=== PATIENT | female | born 1940 | race Caucasian/White ===

== ENCOUNTER 2020-09-12 18:15 | Inpatient (IN) ==
[2020-09-12 19:41] LABS: Basophils % 0.1 %; Hematocrit 45.7 % (35.3-44.9); Hemoglobin 15.1 g/dL (11.5-15.4); Immature Granulocytes % 0.5 % (0-4); Lymphocytes # 1.1 K/mcL (0.6-4.6); Mean Corpuscular Hemoglobin 32.7 pg (28.0-33.3); Mean Corpuscular Volume 98.9 fL (83.0-100.0); Monocytes % 7.6 %; Neutrophils # 11.3 K/mcL (1.6-8.9); Platelet Count 218 K/mcL (140-400); Red Blood Count 4.62 M/mcL (3.82-4.97); Red Cell Distribution Width 13.1 % (11.5-14.5); Segmented Neutrophils % 83.8 %; White Blood Count 13.5 K/mcL (4.3-11.1)
[2020-09-12] MEDS: 0.9 % Sodium Chloride 1,000 ML IVC SCH ×2 (19:50→21:14)
[2020-09-12 20:10] LABS: Troponin I 0.31 ng/mL (< 0.04)
[2020-09-12 20:24] LABS: Amorphous Sediment,Urine Few per hpf (None-Few); Bacteria,Urine Few per hpf (None-Few); Bilirubin,Urine Negative (Negative); Blood,Urine Small (Negative); Clarity,Urine Turbid (Clear); Color,Urine Yellow (Yellow); Glucose,Urine (UA) Normal (Normal); Hyaline Casts,Urine Few per lpf (None Seen); Ketones,Urine Negative (Negative); Leukocyte Esterase,Urine Large (Negative); Mucus,Urine Few per lpf (None-Few); Nitrite,Urine Positive (Negative); Protein,Urine 30 mg/dL (Neg-Trace); Specific Gravity,Urine 1.019 (1.010-1.025); Squamous Epithelial Cell,Urine Few per hpf (None-Few); Urobilinogen,Urine Normal (Normal); WBC,Urine TNTC per hpf (0-3)
[2020-09-12 20:27] LABS: Alanine Aminotransferase 23 Units/L (7-52); Albumin 4.1 g/dL (3.5-5.7); Albumin/Globulin Ratio 1.1 (1.1-2.2); Alkaline Phosphatase 76 Units/L (34-104); Aspartate Amino Transferase 30 Units/L (13-39); BUN/Creatinine Ratio 20 (6-26); Bilirubin,Total 0.9 mg/dL (0.3-1.0); Blood Urea Nitrogen 21 mg/dL (8-23); Calcium 9.6 mg/dL (8.6-10.3); Carbon Dioxide 25 mEq/L (23-29); Chloride 99 mEq/L (98-107); Creatine Kinase 193 Units/L (30-223); Globulin 3.8 g/dL (2.4-3.5); Glucose 115 mg/dL (70-105); Magnesium 2.1 mg/dL (1.6-2.6); Osmolality,Calculated 290 (280-300); Potassium 3.8 mEq/L (3.5-5.1); Sodium 138 mEq/L (136-145); Thyroid Stimulating Hormone 1.909 mcIU/mL (0.340-5.600); Total Protein 7.9 g/dL (6.4-8.9); eGFR For African Americans > 60 (> 60); eGFR For Non-African Americans 50 (> 60)
[2020-09-12] MEDS ORDERED: cefTRIAXone 1,000 MG in Water for inj. (sterile) 10 ML IVP ONE (21:14)
[2020-09-12] MEDS ORDERED: SODIUM CHLORIDE 0.9% IVPB ONE ×2 (21:14→21:30)
[2020-09-12] MEDS ORDERED: GENTAMICIN IVPB ONE ×2 (21:14→21:30)
[2020-09-12] MEDS ORDERED: 0.9 % Sodium Chloride 1,000 ML IVC SCH (21:15)
[2020-09-12] MEDS ORDERED: Ondansetron 4 MG/2 ML VIAL IVP PRN (23:25)
[2020-09-12] MEDS ORDERED: Naloxone 0.4 MG/ML INJ IVP PRN (23:25)
[2020-09-13] MEDS: 0.9 % Sodium Chloride 1,000 ML IVC SCH (01:00)
[2020-09-13] MEDS ORDERED: Perflutren Lipid Microsphere 1.3 ML in 0.9 % Sodium Chloride 8.7 ML IVP PRN (01:08)
[2020-09-13 02:27] LABS: Basophils % 0.3 %; Eosinophils % 0.1 %; Hematocrit 42.7 % (35.3-44.9); Hemoglobin 13.6 g/dL (11.5-15.4); Immature Granulocytes % 0.5 % (0-4); Lymphocytes # 1.3 K/mcL (0.6-4.6); Lymphocytes % 12.7 %; Mean Corpuscular HGB Conc 31.9 g/dL (31.6-35.5); Mean Corpuscular Hemoglobin 31.9 pg (28.0-33.3); Monocytes # 0.9 K/mcL (0.0-1.3); Monocytes % 9.2 %; Neutrophils # 7.7 K/mcL (1.6-8.9); Platelet Count 157 K/mcL (140-400); Red Blood Count 4.27 M/mcL (3.82-4.97); Red Cell Distribution Width 13.4 % (11.5-14.5); Segmented Neutrophils % 77.2 %
[2020-09-13 02:43] LABS: BUN/Creatinine Ratio 19 (6-26); Blood Urea Nitrogen 17 mg/dL (8-23); Calcium 8.3 mg/dL (8.6-10.3); Carbon Dioxide 22 mEq/L (23-29); Chloride 106 mEq/L (98-107); Chol/HDL Ratio 2.7 (0-4.9); Cholesterol 158 mg/dL (< 200); Glucose 99 mg/dL (70-105); HDL Cholesterol 58 mg/dL (40-59); LDL Cholesterol,Calculated 78 mg/dL (< 100); Osmolality,Calculated 294 (280-300); Potassium 3.9 mEq/L (3.5-5.1); Sodium 141 mEq/L (136-145); Triglycerides 110 mg/dL (< 150); eGFR For African Americans > 60 (> 60); eGFR For Non-African Americans > 60 (> 60)
[2020-09-13 02:49] LABS: Troponin I 0.33 ng/mL (< 0.04)
[2020-09-13] MEDS: *HR* Enoxaparin 40 MG/0.4 ML SYRINGE SQ SCH (06:12)
[2020-09-13] MEDS: cefTRIAXone 1,000 MG in Water for inj. (sterile) 10 ML IVP SCH (08:12)
[2020-09-13] MEDS ORDERED: cloNIDine HCL 0.1 MG TABLET PO PRN (12:49)
[2020-09-13] MEDS ORDERED: Ipratropium/Albuterol Neb 3 ML IH PRN (13:03)
[2020-09-13] MEDS: Furosemide 20 MG TABLET PO SCH (13:16)
[2020-09-13] MEDS: Metoprolol 100 MG TABLET PO SCH (22:00)
[2020-09-14] MEDS: Nystatin POWDER 30 GM BOTTLE TP SCH ×3 (05:20→20:38)
[2020-09-14] MEDS: *HR* Enoxaparin 40 MG/0.4 ML SYRINGE SQ SCH (06:21)
[2020-09-14] MEDS: Aspirin Enteric Coated 81 MG Tablet PO SCH (09:06)
[2020-09-14] MEDS: Metoprolol 100 MG TABLET PO SCH ×2 (09:06→20:37)
[2020-09-14] MEDS: Valsartan 160 MG TABLET PO SCH (09:06)
[2020-09-14] MEDS: Cholecalciferol (D-3) 1,000 UNIT (25MCG) TABLET PO SCH (09:06)
[2020-09-14] MEDS: cefTRIAXone 1,000 MG in Water for inj. (sterile) 10 ML IVP SCH (09:09)
[2020-09-14] MEDS: Vancomycin 1,500 MG/265 ML IV.SOLN IVPB SCH (15:29)
[2020-09-15 02:53] LABS: Magnesium 2.1 mg/dL (1.6-2.6); Phosphorous 3.8 mg/dL (2.7-4.5); Potassium 3.9 mEq/L (3.5-5.1)
[2020-09-15] MEDS: *HR* Enoxaparin 40 MG/0.4 ML SYRINGE SQ SCH (06:18)
[2020-09-15 08:34] LABS: Acinetobacter baumannii by PCR Not Detected (Not Detect); Candida albicans by PCR Not Detected (Not Detect); Candida glabrata by PCR Not Detected (Not Detect); Candida krusei by PCR Not Detected (Not Detect); Candida parapsilosis by PCR Not Detected (Not Detect); Candida tropicalis by PCR Not Detected (Not Detect); Enterobacter cloacae Cmplx PCR Not Detected (Not Detect); Enterobacteriaceae by PCR Not Detected (Not Detect); Enterococcus by PCR Not Detected (Not Detect); Escherichia coli by PCR Not Detected (Not Detect); Klebsiella oxytoca by PCR Not Detected (Not Detect); Klebsiella pneumoniae by PCR Not Detected (Not Detect); Proteus by PCR Not Detected (Not Detect); Pseudomonas aeruginosa by PCR Not Detected (Not Detect); Serratia marcescens by PCR Not Detected (Not Detect); Staphylococcus aureus by PCR DETECTED (Not Detect); Streptococcus agalactiae(B)PCR Not Detected (Not Detect); Streptococcus by PCR Not Detected (Not Detect); Streptococcus pneumoniae PCR Not Detected (Not Detect); Streptococcus pyogenes (A) PCR Not Detected (Not Detect); mecA Methicillin-Resist Gene DETECTED (Not Detect)
[2020-09-15] MEDS: Aspirin Enteric Coated 81 MG Tablet PO SCH (09:12)
[2020-09-15] MEDS: Metoprolol 100 MG TABLET PO SCH ×2 (09:12→20:21)
[2020-09-15] MEDS: Cholecalciferol (D-3) 1,000 UNIT (25MCG) TABLET PO SCH (09:12)
[2020-09-15] MEDS: Valsartan 160 MG TABLET PO SCH (09:13)
[2020-09-15] MEDS: cefTRIAXone 1,000 MG in Water for inj. (sterile) 10 ML IVP SCH (09:13)
[2020-09-15] MEDS: Nystatin POWDER 30 GM BOTTLE TP SCH ×2 (09:14→20:21)
[2020-09-15] MEDS ORDERED: Perflutren Lipid Microsphere 1.3 ML in 0.9 % Sodium Chloride 8.7 ML IVP PRN (10:15)
[2020-09-15] MEDS: Furosemide 20 MG TABLET PO SCH (12:20)
[2020-09-15] MEDS: Vancomycin 1,500 MG/265 ML IV.SOLN IVPB SCH (16:33)
[2020-09-15] MEDS: Cefdinir 300 MG CAPSULE PO SCH (20:21)
[2020-09-16] MEDS: *HR* Enoxaparin 40 MG/0.4 ML SYRINGE SQ SCH (06:24)
[2020-09-16] MEDS: Cholecalciferol (D-3) 1,000 UNIT (25MCG) TABLET PO SCH (09:09)
[2020-09-16] MEDS: Cefdinir 300 MG CAPSULE PO SCH ×2 (09:09→21:02)
[2020-09-16] MEDS: Valsartan 160 MG TABLET PO SCH (09:09)
[2020-09-16] MEDS: Aspirin Enteric Coated 81 MG Tablet PO SCH (09:09)
[2020-09-16] MEDS: Metoprolol 100 MG TABLET PO SCH ×2 (09:10→21:02)
[2020-09-16] MEDS: Nystatin POWDER 30 GM BOTTLE TP SCH ×2 (09:12→21:03)
[2020-09-16] MEDS ORDERED: lisinopriL 5 MG TABLET PO SCH (10:00)
[2020-09-16] MEDS: Acetaminophen 325 MG TABLET PO PRN (11:13)
[2020-09-16] MEDS: Vancomycin 1,750 MG/517.5 ML IV.SOLN IVPB SCH (15:37)
[2020-09-17 02:17] LABS: Calcium 8.6 mg/dL (8.6-10.3); Magnesium 1.8 mg/dL (1.6-2.6); Phosphorous 3.9 mg/dL (2.7-4.5); Potassium 3.4 mEq/L (3.5-5.1)
[2020-09-17] MEDS: *HR* Enoxaparin 40 MG/0.4 ML SYRINGE SQ SCH (05:10)
[2020-09-17] MEDS: Cholecalciferol (D-3) 1,000 UNIT (25MCG) TABLET PO SCH (08:16)
[2020-09-17] MEDS: Cefdinir 300 MG CAPSULE PO SCH ×2 (08:16→20:05)
[2020-09-17] MEDS: Valsartan 160 MG TABLET PO SCH (08:17)
[2020-09-17] MEDS: Nystatin POWDER 30 GM BOTTLE TP SCH ×2 (08:17→20:05)
[2020-09-17] MEDS: Aspirin Enteric Coated 81 MG Tablet PO SCH (08:17)
[2020-09-17] MEDS ORDERED: *HR* Midazolam HCl 5 MG/5 ML VIAL IVP PRN (08:45)
[2020-09-17] MEDS ORDERED: 0.9 % Sodium Chloride 500 ML IVC ONE (08:45)
[2020-09-17] MEDS ORDERED: Lidocaine Viscous Oral Soln 15 ML SOLUTION MM PRN (08:45)
[2020-09-17] MEDS ORDERED: Metoprolol XL (24 HR) Succ 50 MG TAB.ER.24H PO SCH (09:00)
[2020-09-17] MEDS: Acetaminophen 325 MG TABLET PO PRN (14:24)
[2020-09-17] MEDS: Furosemide 20 MG TABLET PO SCH (14:24)
[2020-09-17] MEDS: Vancomycin 1,750 MG/517.5 ML IV.SOLN IVPB SCH (17:19)
[2020-09-18 04:03] VITALS: BP 132/85
[2020-09-18] MEDS: *HR* Enoxaparin 40 MG/0.4 ML SYRINGE SQ SCH (05:01)
== END 2020-09-18 06:45 | disposition short-term general hospital (02) | DRG 280 ==
LOC: EMEROOARM 18:15 → 2ANU 18:15 → SUATTDRO 22:24 → 2ANU 23:24
PROVIDERS: ADMIT Family Medicine; ATTEND Internal Medicine

== ENCOUNTER 2021-03-06 14:56 | Inpatient (IN) ==
[2021-03-06] MEDS ORDERED: Isovue-370 500 ML BOTTLE IVP ONE (15:13)
[2021-03-06 15:33] LABS: Basophils # 0.1 K/mcL (0.0-0.2); Basophils % 0.4 %; Eosinophils # 0.3 K/mcL (0.0-0.6); Eosinophils % 2.5 %; Hematocrit 34.2 % (35.3-44.9); Hemoglobin 10.9 g/dL (11.5-15.4); Immature Granulocytes % 0.4 % (0-4); Lymphocytes # 1.9 K/mcL (0.6-4.6); Lymphocytes % 15.5 %; Mean Corpuscular HGB Conc 31.9 g/dL (31.6-35.5); Mean Corpuscular Hemoglobin 29.5 pg (28.0-33.3); Mean Corpuscular Volume 92.7 fL (83.0-100.0); Mean Platelet Volume 11.6 fL (9.4-12.4); Neutrophils # 8.9 K/mcL (1.6-8.9); Platelet Count 194 K/mcL (140-400); Red Blood Count 3.69 M/mcL (3.82-4.97); Segmented Neutrophils % 73.2 %; White Blood Count 12.2 K/mcL (4.3-11.1)
[2021-03-06 16:05] LABS: Influenza A PCR Negative (Negative); Influenza B PCR Negative (Negative); Resp. Syncytial Virus PCR Negative (Negative)
[2021-03-06 16:08] LABS: SARS-CoV-2 by PCR (In House) Negative (Negative)
[2021-03-06 16:53] LABS: INR 1.2; Prothrombin Time 13.1 Seconds (9.4-12.1)
[2021-03-06 16:56] LABS: Activated Partial Thrombo Time 29.4 Seconds (26.0-36.0)
[2021-03-06] MEDS ORDERED: 0.9 % Sodium Chloride 1,000 ML IV ONE (17:09)
[2021-03-06 17:15] LABS: Albumin 3.2 g/dL (3.5-5.7); Albumin/Globulin Ratio 0.9 (1.1-2.2); Bilirubin,Direct 0.2 mg/dL (0.0-0.2); Bilirubin,Indirect 0.5 mg/dL (0.0-1.0); Bilirubin,Total 0.7 mg/dL (0.3-1.0); Calcium 11.3 mg/dL (8.6-10.3); Globulin 3.4 g/dL (2.4-3.5); Total Protein 6.6 g/dL (6.4-8.9); Troponin I 0.11 ng/mL (< 0.04)
[2021-03-06] MEDS ORDERED: Vancomycin 1,250 MG/262.5 ML IV.SOLN IVPB ONE (17:18)
[2021-03-06] MEDS ORDERED: Piperacillin/Tazobactam 3.375 GM in 0.9 % Sodium Chloride Mini Bag 100 ML IVPB ONE (17:18)
[2021-03-06] MEDS ORDERED: Potassium Chloride Elixir 20 MEQ/15 ML UDC PO ONE (17:40)
[2021-03-06] MEDS ORDERED: 0.9 % Sodium Chloride 1,000 ML IVC ONE (18:42)
[2021-03-06 19:07] LABS: Bacteria,Urine Few per hpf (None-Few); Bilirubin,Urine Negative (Negative); Blood,Urine Small (Negative); Clarity,Urine Turbid (Clear); Color,Urine Yellow (Yellow); Glucose,Urine (UA) Normal (Normal); Hyaline Casts,Urine Moderate per lpf (None Seen); Ketones,Urine Negative (Negative); Leukocyte Esterase,Urine Large (Negative); Mucus,Urine Few per lpf (None-Few); Nitrite,Urine Positive (Negative); Protein,Urine Trace mg/dL (Neg-Trace); Renal Epithelial Cells,Urine Few per hpf (None-Few); Specific Gravity,Urine 1.014 (1.010-1.025); Squamous Epithelial Cell,Urine Few per hpf (None-Few); Transitional Epi Cells,Urine Few per hpf (None-Few); Urobilinogen,Urine Normal (Normal); WBC,Urine TNTC per hpf (0-3)
[2021-03-06] MEDS ORDERED: Naloxone 0.4 MG/ML INJ IVP PRN (22:07)
[2021-03-06] MEDS ORDERED: Melatonin 3 MG TABLET PO PRN (22:07)
[2021-03-06] MEDS: Sennosides/Docusate Sodium TABLET PO SCH (23:49)
[2021-03-06] MEDS: Aspirin 81 MG TAB.CHEW PO SCH (23:49)
[2021-03-07] MEDS ORDERED: Piperacillin/Tazobactam 3.375 GM in 0.9 % Sodium Chloride Mini Bag 100 ML IVPB SCH ×2 (01:00→13:00)
[2021-03-07] MEDS: *HR* Heparin 5,000 UNIT/ML VIAL SQ SCH ×2 (06:11→16:43)
[2021-03-07 07:08] LABS: Basophils % 0.3 %; Eosinophils # 0.5 K/mcL (0.0-0.6); Eosinophils % 5.4 %; Hematocrit 31.4 % (35.3-44.9); Immature Granulocytes % 0.5 % (0-4); Lymphocytes # 1.3 K/mcL (0.6-4.6); Lymphocytes % 14.8 %; Mean Corpuscular HGB Conc 29.6 g/dL (31.6-35.5); Mean Corpuscular Hemoglobin 28.6 pg (28.0-33.3); Mean Corpuscular Volume 96.6 fL (83.0-100.0); Mean Platelet Volume 11.8 fL (9.4-12.4); Monocytes # 0.8 K/mcL (0.0-1.3); Monocytes % 9.6 %; Platelet Count 156 K/mcL (140-400); Red Blood Count 3.25 M/mcL (3.82-4.97); Red Cell Distribution Width 13.8 % (11.5-14.5); Segmented Neutrophils % 69.4 %; White Blood Count 8.6 K/mcL (4.3-11.1)
[2021-03-07 07:12] LABS: Hemoglobin 9.3 g/dL (11.5-15.4)
[2021-03-07 08:08] LABS: Albumin 2.7 g/dL (3.5-5.7); Albumin/Globulin Ratio 0.9 (1.1-2.2); Bilirubin,Total 0.7 mg/dL (0.3-1.0); Globulin 2.9 g/dL (2.4-3.5); Magnesium 1.7 mg/dL (1.6-2.6); Phosphorous 2.6 mg/dL (2.7-4.5); Potassium 3.2 mEq/L (3.5-5.1); Total Protein 5.6 g/dL (6.4-8.9)
[2021-03-07] MEDS ORDERED: Famotidine 20 MG TABLET PO SCH (09:00)
[2021-03-07] MEDS: Sennosides/Docusate Sodium TABLET PO SCH (11:18)
[2021-03-07] MEDS: Aspirin 81 MG TAB.CHEW PO SCH (11:18)
[2021-03-07] MEDS: Piperacillin/Tazobactam 3.375 GM in 0.9 % Sodium Chloride Mini Bag 100 ML IVPB SCH ×2 (11:18→19:46)
[2021-03-07] MEDS: Lactobacillus 1 EACH CAP.SPRINK PO SCH (21:06)
[2021-03-07] MEDS: polyethylene glycoL 3350 17 GM POWD.PACK PO SCH (21:08)
[2021-03-08] MEDS: Piperacillin/Tazobactam 3.375 GM in 0.9 % Sodium Chloride Mini Bag 100 ML IVPB SCH ×3 (03:01→18:09)
[2021-03-08 05:08] LABS: Basophils % 0.4 %; Eosinophils # 0.4 K/mcL (0.0-0.6); Eosinophils % 4.9 %; Hematocrit 32.6 % (35.3-44.9); Hemoglobin 9.9 g/dL (11.5-15.4); Immature Granulocytes % 0.2 % (0-4); Lymphocytes # 1.7 K/mcL (0.6-4.6); Lymphocytes % 19.8 %; Mean Corpuscular HGB Conc 30.4 g/dL (31.6-35.5); Mean Corpuscular Hemoglobin 28.5 pg (28.0-33.3); Mean Corpuscular Volume 93.9 fL (83.0-100.0); Mean Platelet Volume 11.6 fL (9.4-12.4); Monocytes # 0.9 K/mcL (0.0-1.3); Monocytes % 10.5 %; Neutrophils # 5.4 K/mcL (1.6-8.9); Platelet Count 180 K/mcL (140-400); Red Blood Count 3.47 M/mcL (3.82-4.97); Red Cell Distribution Width 13.8 % (11.5-14.5); Segmented Neutrophils % 64.2 %; White Blood Count 8.4 K/mcL (4.3-11.1)
[2021-03-08] MEDS: *HR* Heparin 5,000 UNIT/ML VIAL SQ SCH ×2 (05:17→18:09)
[2021-03-08 05:20] LABS: Albumin 2.8 g/dL (3.5-5.7); Albumin/Globulin Ratio 0.9 (1.1-2.2); Bilirubin,Direct 0.1 mg/dL (0.0-0.2); Bilirubin,Indirect 0.4 mg/dL (0.0-1.0); Bilirubin,Total 0.5 mg/dL (0.3-1.0); Calcium 9.8 mg/dL (8.6-10.3); Globulin 3.1 g/dL (2.4-3.5); Magnesium 1.7 mg/dL (1.6-2.6); Potassium 3.4 mEq/L (3.5-5.1); Total Protein 5.9 g/dL (6.4-8.9)
[2021-03-08 05:32] LABS: Thyroid Stimulating Hormone 3.716 mcIU/mL (0.340-5.600)
[2021-03-08] MEDS: polyethylene glycoL 3350 17 GM POWD.PACK PO SCH (07:18)
[2021-03-08] MEDS: Aspirin 81 MG TAB.CHEW PO SCH (08:09)
[2021-03-08] MEDS: Lactobacillus 1 EACH CAP.SPRINK PO SCH (08:09)
[2021-03-08] MEDS: Potassium Chloride Elixir 20 MEQ/15 ML UDC GTUBE SCH ×2 (08:10→19:41)
[2021-03-08] MEDS ORDERED: Famotidine 20 MG TABLET PO SCH (09:00)
[2021-03-08] MEDS ORDERED: Melatonin 3 MG TABLET GTUBE PRN (11:34)
[2021-03-08] MEDS: Lactobacillus 1 EACH CAP.SPRINK GTUBE SCH (19:43)
[2021-03-09 02:55] LABS: Basophils % 0.4 %; Eosinophils # 0.7 K/mcL (0.0-0.6); Eosinophils % 9.3 %; Hematocrit 34.5 % (35.3-44.9); Hemoglobin 10.2 g/dL (11.5-15.4); Immature Granulocytes % 0.4 % (0-4); Lymphocytes # 1.6 K/mcL (0.6-4.6); Lymphocytes % 22.1 %; Mean Corpuscular HGB Conc 29.6 g/dL (31.6-35.5); Mean Corpuscular Hemoglobin 29.2 pg (28.0-33.3); Mean Corpuscular Volume 98.9 fL (83.0-100.0); Mean Platelet Volume 11.1 fL (9.4-12.4); Monocytes # 0.7 K/mcL (0.0-1.3); Neutrophils # 4.1 K/mcL (1.6-8.9); Platelet Count 207 K/mcL (140-400); Red Blood Count 3.49 M/mcL (3.82-4.97); Red Cell Distribution Width 13.9 % (11.5-14.5); Segmented Neutrophils % 57.8 %; White Blood Count 7.1 K/mcL (4.3-11.1)
[2021-03-09] MEDS: Piperacillin/Tazobactam 3.375 GM in 0.9 % Sodium Chloride Mini Bag 100 ML IVPB SCH ×3 (03:00→18:06)
[2021-03-09 03:20] LABS: Calcium 9.3 mg/dL (8.6-10.3); Magnesium 1.9 mg/dL (1.6-2.6); Phosphorous 1.6 mg/dL (2.7-4.5); Potassium 3.3 mEq/L (3.5-5.1)
[2021-03-09] MEDS: *HR* Heparin 5,000 UNIT/ML VIAL SQ SCH ×2 (05:34→16:54)
[2021-03-09] MEDS ORDERED: Famotidine 20 MG TABLET GTUBE SCH (09:00)
[2021-03-09] MEDS: Lactobacillus 1 EACH CAP.SPRINK GTUBE SCH ×2 (09:54→20:41)
[2021-03-09] MEDS: Potassium Chloride Elixir 20 MEQ/15 ML UDC GTUBE SCH ×2 (09:55→20:41)
[2021-03-09] MEDS: Famotidine 20 MG TABLET GTUBE SCH (09:55)
[2021-03-09] MEDS: Aspirin 81 MG TAB.CHEW GTUBE SCH (09:55)
[2021-03-09] MEDS: amLODIPine 5 MG TABLET GTUBE SCH (14:51)
[2021-03-09] MEDS ORDERED: *HR* Dextrose 50 % in Water (Syg) 50 ML SYRINGE IVP ONE (16:43)
[2021-03-09] MEDS ORDERED: *HR* Dextrose 50 % in Water (Syg) 50 ML SYRINGE ONE (16:47)
[2021-03-09] MEDS: carvediloL 25 MG TABLET GTUBE SCH (20:41)
[2021-03-10] MEDS: Piperacillin/Tazobactam 3.375 GM in 0.9 % Sodium Chloride Mini Bag 100 ML IVPB SCH ×3 (04:42→17:11)
[2021-03-10] MEDS: *HR* Heparin 5,000 UNIT/ML VIAL SQ SCH ×2 (05:22→17:11)
[2021-03-10 07:16] LABS: Hemoglobin 9.3 g/dL (11.5-15.4); Mean Corpuscular Hemoglobin 29.4 pg (28.0-33.3); Mean Corpuscular Volume 94.9 fL (83.0-100.0); Mean Platelet Volume 11.2 fL (9.4-12.4); Platelet Count 216 K/mcL (140-400); Red Blood Count 3.16 M/mcL (3.82-4.97); Red Cell Distribution Width 14.3 % (11.5-14.5); White Blood Count 6.6 K/mcL (4.3-11.1)
[2021-03-10 07:41] LABS: Iron 54 mcg/dL (50-170)
[2021-03-10 08:00] LABS: Folate 5.6 ng/mL (3.0-16.0)
[2021-03-10 08:04] LABS: Albumin 2.6 g/dL (3.5-5.7); Albumin/Globulin Ratio 0.9 (1.1-2.2); Bilirubin,Direct 0.1 mg/dL (0.0-0.2); Bilirubin,Indirect 0.2 mg/dL (0.0-1.0); Bilirubin,Total 0.3 mg/dL (0.3-1.0); Calcium 8.7 mg/dL (8.6-10.3); Globulin 2.8 g/dL (2.4-3.5); Magnesium 1.5 mg/dL (1.6-2.6); Potassium 4.2 mEq/L (3.5-5.1); Total Protein 5.4 g/dL (6.4-8.9)
[2021-03-10 08:24] LABS: Eosinophils # 0.6 K/mcL (0.0-0.6); Lymphocytes # 2.2 K/mcL (0.6-4.6); Monocytes # 0.4 K/mcL (0.0-1.3); Neutrophils # 3.4 K/mcL (1.6-8.9)
[2021-03-10 08:25] LABS: Platelet Estimate Normal (Normal); Reactive Lymphocytes Present (Not Present)
[2021-03-10 09:11] LABS: Ferritin 180 ng/mL (10-120)
[2021-03-10] MEDS: Valsartan 160 MG TABLET GTUBE SCH (09:17)
[2021-03-10] MEDS: carvediloL 25 MG TABLET GTUBE SCH ×2 (09:17→21:22)
[2021-03-10] MEDS: amLODIPine 5 MG TABLET GTUBE SCH (09:17)
[2021-03-10] MEDS: Aspirin 81 MG TAB.CHEW GTUBE SCH (09:17)
[2021-03-10] MEDS: Famotidine 20 MG TABLET GTUBE SCH (09:18)
[2021-03-10] MEDS: Lactobacillus 1 EACH CAP.SPRINK GTUBE SCH ×2 (09:18→21:22)
[2021-03-10] MEDS: Cholecalciferol (D-3) 1,000 UNIT (25MCG) TABLET GTUBE SCH (09:19)
[2021-03-11] MEDS: Piperacillin/Tazobactam 3.375 GM in 0.9 % Sodium Chloride Mini Bag 100 ML IVPB SCH ×3 (03:10→17:37)
[2021-03-11] MEDS: *HR* Heparin 5,000 UNIT/ML VIAL SQ SCH ×2 (05:17→17:37)
[2021-03-11 06:47] LABS: Basophils # 0.1 K/mcL (0.0-0.2); Basophils % 0.6 %; Eosinophils # 0.8 K/mcL (0.0-0.6); Eosinophils % 9.6 %; Hematocrit 37.3 % (35.3-44.9); Immature Granulocytes % 0.6 % (0-4); Lymphocytes # 1.5 K/mcL (0.6-4.6); Lymphocytes % 18.5 %; Mean Corpuscular HGB Conc 29.8 g/dL (31.6-35.5); Mean Corpuscular Hemoglobin 28.5 pg (28.0-33.3); Mean Corpuscular Volume 95.6 fL (83.0-100.0); Mean Platelet Volume 11.7 fL (9.4-12.4); Monocytes # 0.5 K/mcL (0.0-1.3); Monocytes % 6.1 %; Neutrophils # 5.1 K/mcL (1.6-8.9); Platelet Count 220 K/mcL (140-400); Red Cell Distribution Width 14.1 % (11.5-14.5); Segmented Neutrophils % 64.6 %; White Blood Count 7.8 K/mcL (4.3-11.1)
[2021-03-11 06:48] LABS: Hemoglobin 11.1 g/dL (11.5-15.4)
[2021-03-11] MEDS: amLODIPine 5 MG TABLET GTUBE SCH (08:14)
[2021-03-11] MEDS: Famotidine 20 MG TABLET GTUBE SCH (08:15)
[2021-03-11] MEDS: Valsartan 160 MG TABLET GTUBE SCH (08:15)
[2021-03-11] MEDS: carvediloL 25 MG TABLET GTUBE SCH ×2 (08:15→21:16)
[2021-03-11] MEDS: Cholecalciferol (D-3) 1,000 UNIT (25MCG) TABLET GTUBE SCH (08:15)
[2021-03-11] MEDS: Lactobacillus 1 EACH CAP.SPRINK GTUBE SCH ×2 (08:15→21:16)
[2021-03-11] MEDS: Aspirin 81 MG TAB.CHEW GTUBE SCH (08:15)
[2021-03-11 12:38] LABS: Calcium 9.1 mg/dL (8.6-10.3); Magnesium 1.7 mg/dL (1.6-2.6)
[2021-03-12] MEDS ORDERED: Piperacillin/Tazobactam 3.375 GM in 0.9 % Sodium Chloride Mini Bag 100 ML IVPB SCH
[2021-03-12] MEDS: Piperacillin/Tazobactam 3.375 GM in 0.9 % Sodium Chloride Mini Bag 100 ML IVPB SCH ×2 (02:37→12:20)
[2021-03-12] MEDS: *HR* Heparin 5,000 UNIT/ML VIAL SQ SCH ×2 (05:13→18:45)
[2021-03-12 05:28] LABS: Basophils # 0.1 K/mcL (0.0-0.2); Basophils % 0.6 %; Calcium 9.1 mg/dL (8.6-10.3); Eosinophils # 0.8 K/mcL (0.0-0.6); Eosinophils % 8.7 %; Hematocrit 30.7 % (35.3-44.9); Hemoglobin 9.7 g/dL (11.5-15.4); Immature Granulocytes % 0.7 % (0-4); Lymphocytes # 2.1 K/mcL (0.6-4.6); Lymphocytes % 24.1 %; Magnesium 1.6 mg/dL (1.6-2.6); Mean Corpuscular HGB Conc 31.6 g/dL (31.6-35.5); Mean Corpuscular Hemoglobin 29.5 pg (28.0-33.3); Mean Corpuscular Volume 93.3 fL (83.0-100.0); Mean Platelet Volume 11.6 fL (9.4-12.4); Monocytes # 0.7 K/mcL (0.0-1.3); Monocytes % 8.2 %; Neutrophils # 5.1 K/mcL (1.6-8.9); Platelet Count 222 K/mcL (140-400); Potassium 4.3 mEq/L (3.5-5.1); Red Blood Count 3.29 M/mcL (3.82-4.97); Red Cell Distribution Width 14.1 % (11.5-14.5); Segmented Neutrophils % 57.7 %; White Blood Count 8.8 K/mcL (4.3-11.1)
[2021-03-12] MEDS: Aspirin 81 MG TAB.CHEW GTUBE SCH (08:45)
[2021-03-12] MEDS: Famotidine 20 MG TABLET GTUBE SCH (08:45)
[2021-03-12] MEDS: Valsartan 160 MG TABLET GTUBE SCH (08:46)
[2021-03-12] MEDS: carvediloL 25 MG TABLET GTUBE SCH ×2 (08:46→21:57)
[2021-03-12] MEDS: Lactobacillus 1 EACH CAP.SPRINK GTUBE SCH ×2 (08:46→21:57)
[2021-03-12] MEDS: Cholecalciferol (D-3) 1,000 UNIT (25MCG) TABLET GTUBE SCH (08:46)
[2021-03-13] MEDS: Piperacillin/Tazobactam 3.375 GM in 0.9 % Sodium Chloride Mini Bag 100 ML IVPB SCH ×4 (01:01→16:35)
[2021-03-13 03:16] LABS: Basophils # 0.1 K/mcL (0.0-0.2); Basophils % 0.6 %; Eosinophils # 0.7 K/mcL (0.0-0.6); Eosinophils % 7.2 %; Hematocrit 33.5 % (35.3-44.9); Immature Granulocytes % 0.9 % (0-4); Lymphocytes # 2.5 K/mcL (0.6-4.6); Lymphocytes % 25.2 %; Mean Corpuscular HGB Conc 29.9 g/dL (31.6-35.5); Mean Corpuscular Hemoglobin 28.7 pg (28.0-33.3); Mean Platelet Volume 11.6 fL (9.4-12.4); Monocytes # 0.7 K/mcL (0.0-1.3); Neutrophils # 5.9 K/mcL (1.6-8.9); Platelet Count 168 K/mcL (140-400); Red Blood Count 3.49 M/mcL (3.82-4.97); Red Cell Distribution Width 14.6 % (11.5-14.5); Segmented Neutrophils % 59.1 %; White Blood Count 9.9 K/mcL (4.3-11.1)
[2021-03-13 03:36] LABS: Magnesium 1.6 mg/dL (1.6-2.6); Potassium 3.9 mEq/L (3.5-5.1)
[2021-03-13] MEDS: *HR* Heparin 5,000 UNIT/ML VIAL SQ SCH ×2 (05:54→17:30)
[2021-03-13] MEDS ORDERED: Valsartan 160 MG TABLET GTUBE SCH (09:00)
[2021-03-13] MEDS: Cholecalciferol (D-3) 1,000 UNIT (25MCG) TABLET GTUBE SCH (09:07)
[2021-03-13] MEDS: Aspirin 81 MG TAB.CHEW GTUBE SCH (09:08)
[2021-03-13] MEDS: Lactobacillus 1 EACH CAP.SPRINK GTUBE SCH ×2 (09:08→20:22)
[2021-03-13] MEDS: Famotidine 20 MG TABLET GTUBE SCH (09:08)
[2021-03-13] MEDS: carvediloL 25 MG TABLET GTUBE SCH ×2 (09:08→20:21)
[2021-03-13 10:00] LABS: % Iron Saturation 36 % (15-50); Transferrin 106 mg/dL (200-400)
[2021-03-13] MEDS ORDERED: carvediloL 25 MG TABLET GTUBE SCH (15:47)
[2021-03-13] MEDS ORDERED: 0.9 % Sodium Chloride 250 ML IVC ONE (21:41)
[2021-03-14] MEDS: *HR* Heparin 5,000 UNIT/ML VIAL SQ SCH ×2 (05:16→16:20)
[2021-03-14] MEDS: Aspirin 81 MG TAB.CHEW GTUBE SCH (08:24)
[2021-03-14] MEDS: carvediloL 25 MG TABLET GTUBE SCH ×2 (08:25→16:20)
[2021-03-14] MEDS: Lactobacillus 1 EACH CAP.SPRINK GTUBE SCH ×2 (08:26→20:52)
[2021-03-14] MEDS: Famotidine 20 MG TABLET GTUBE SCH (08:27)
[2021-03-14] MEDS: Cholecalciferol (D-3) 1,000 UNIT (25MCG) TABLET GTUBE SCH (08:28)
[2021-03-14] MEDS ORDERED: Amiodarone Premix 360 MG/200 ML BAG IVC ONE (18:08)
[2021-03-14] MEDS ORDERED: *HR* Metoprolol 5 MG/5 ML VIAL IVP PRN (18:10)
[2021-03-14 18:24] LABS: Hemoglobin 10.4 g/dL (11.5-15.4); Mean Corpuscular HGB Conc 31.5 g/dL (31.6-35.5); Mean Corpuscular Hemoglobin 29.6 pg (28.0-33.3); Mean Platelet Volume 11.6 fL (9.4-12.4); Platelet Count 220 K/mcL (140-400); Red Blood Count 3.51 M/mcL (3.82-4.97); Red Cell Distribution Width 14.6 % (11.5-14.5)
[2021-03-14 18:37] LABS: Alanine Aminotransferase 13 Units/L (7-52); Albumin/Globulin Ratio 0.9 (1.1-2.2); Alkaline Phosphatase 41 Units/L (34-104); Aspartate Amino Transferase 16 Units/L (13-39); BUN/Creatinine Ratio 20 (6-26); Bilirubin,Total 0.3 mg/dL (0.3-1.0); Blood Urea Nitrogen 20 mg/dL (8-23); Calcium 9.1 mg/dL (8.6-10.3); Carbon Dioxide 27 mEq/L (23-29); Chloride 103 mEq/L (98-107); Globulin 3.4 g/dL (2.4-3.5); Glucose 112 mg/dL (70-105); Magnesium 1.6 mg/dL (1.6-2.6); Osmolality,Calculated 285 (280-300); Phosphorous 3.6 mg/dL (2.7-4.5); Potassium 4.2 mEq/L (3.5-5.1); Sodium 136 mEq/L (136-145); Total Protein 6.4 g/dL (6.4-8.9); eGFR For African Americans > 60 (> 60); eGFR For Non-African Americans 52 (> 60)
[2021-03-14] MEDS: Nystatin POWDER 30 GM BOTTLE TP SCH (20:52)
[2021-03-15] MEDS ORDERED: Amiodarone Premix 360 MG/200 ML BAG IVC SCH (00:08)
[2021-03-15 03:20] LABS: Hematocrit 30.2 % (35.3-44.9); Hemoglobin 9.3 g/dL (11.5-15.4); Mean Corpuscular HGB Conc 30.8 g/dL (31.6-35.5); Mean Corpuscular Hemoglobin 28.8 pg (28.0-33.3); Mean Corpuscular Volume 93.5 fL (83.0-100.0); Mean Platelet Volume 11.4 fL (9.4-12.4); Platelet Count 234 K/mcL (140-400); Red Blood Count 3.23 M/mcL (3.82-4.97); Red Cell Distribution Width 14.5 % (11.5-14.5)
[2021-03-15 03:37] LABS: BUN/Creatinine Ratio 19 (6-26); Blood Urea Nitrogen 18 mg/dL (8-23); Calcium 9.4 mg/dL (8.6-10.3); Carbon Dioxide 24 mEq/L (23-29); Chloride 103 mEq/L (98-107); Glucose 87 mg/dL (70-105); Osmolality,Calculated 281 (280-300); Potassium 4.1 mEq/L (3.5-5.1); Sodium 135 mEq/L (136-145); eGFR For African Americans > 60 (> 60); eGFR For Non-African Americans 55 (> 60)
[2021-03-15] MEDS: *HR* Heparin 5,000 UNIT/ML VIAL SQ SCH (05:42)
[2021-03-15] MEDS: Cholecalciferol (D-3) 1,000 UNIT (25MCG) TABLET GTUBE SCH (08:14)
[2021-03-15] MEDS: carvediloL 25 MG TABLET GTUBE SCH (08:15)
[2021-03-15] MEDS: Lactobacillus 1 EACH CAP.SPRINK GTUBE SCH (08:15)
[2021-03-15] MEDS: Famotidine 20 MG TABLET GTUBE SCH (08:17)
[2021-03-15] MEDS: Nystatin POWDER 30 GM BOTTLE TP SCH (08:19)
[2021-03-15 10:35] VITALS: BP 110/38; PULSE 73; TEMP 98.1; O2SAT 90
[2021-03-16] MEDS ORDERED: Isosorbide MONOnitrate (24 HR) 30 MG TAB.ER.24H PO SCH ×2 (09:00)
[2021-03-16] MEDS ORDERED: lisinopriL 5 MG TABLET GTUBE SCH (09:00)
[2021-03-16] MEDS ORDERED: Furosemide Oral Soln 40 MG/4 ML UDC GTUBE SCH (09:00)
== END 2021-03-15 18:00 | disposition home health service (06) | DRG 871 ==
LOC: EMEROOARM 14:56 → 2NENU 14:56 → SUATTDRO 22:07
PROVIDERS: ADMIT Student in an Organized Health Care Education/Training Program; ATTEND Family Medicine